=== PATIENT | female | born 1995 | race American Indian/Alaskan Native ===

== ENCOUNTER 2017-02-01 13:08 | Emergency (ER) | payer MEDICAID ==
[2017-02-01 15:17] LABS: Basophils % (Auto) 0.8 % (0.0-1.8); Eosinophils % (Auto) 2.6 % (0.0-4.3); Hematocrit 29.1 % (30.3-42.9); Hemoglobin 9.2 gm/dl (10.1-14.3); Mean Corpuscular HGB Conc 31 % (30-34); Platelet Count 289 K/mm3 (140-440); Red Blood Count 4.52 M/mm3 (3.65-5.03); Red Cell Distribution Width 17.2 % (13.2-15.2); White Blood Count 8.5 K/mm3 (4.5-11.0)
[2017-02-01 15:28] LABS: Mean Corpuscular Hemoglobin 20 pg (28-32); Mean Corpuscular Volume 64 fl (79-97)
[2017-02-01 15:39] LABS: Alanine Aminotransferase 10 units/L (7-56); Albumin 3.8 g/dL (3.9-5); Alkaline Phosphatase 67 units/L (35-129); Anion Gap 20 mmol/L; BUN/Creatinine Ratio 13.33; Blood Urea Nitrogen 8 mg/dL (7-17); Calcium 9.1 mg/dL (8.4-10.2); Carbon Dioxide 21 mmol/L (22-30); Chloride 100.4 mmol/L (98-107); Glucose 91 mg/dL (65-100); Potassium 4.1 mmol/L (3.6-5.0); Sodium 137 mmol/L (137-145); Total Protein 7.8 g/dL (6.3-8.2)
[2017-02-01 15:49] LABS: Bacteria,Urine 1+ /HPF (Negative); Bilirubin,Urine NEG (Negative); Blood,Urine NEG (Negative); Ketones,Urine NEG (Negative); Leukocyte Esterase,Urine SM (Negative); Mucus,Urine FEW /HPF; Nitrite,Urine NEG (Negative); Protein,Urine <15 mg/dL mg/dL (Negative); Urobilinogen,Urine < 2.0 mg/dL (<2.0)
--- NOTE | 2017-02-01 17:52 | Emergency Department Report ---
Entered by BERNICE CRUZ, acting as scribe for JENNIE ALVARES PA. Chief Complaint: Abdominal Pain Stated Complaint: ? WKS PREG/ABD PAIN Time Seen by Provider: 02/01/17 15:37 - HPI History of Present Illness: 21 y/o female patient that is c/o 01/02, sharp right lower abdominal pain for 2 days that radiates to her right upper abdomen. Patient states she doesn't know how far along she is. Denies Hx of similar abdominal pain in the past. Reports normal PO intake. Reports discomfort after urination. Denies nausea and vomiting. Denies vaginal bleeding. Denies fever and chills. Denies dysuria. LMP in September 2016. Patient states she found out that she was in October 2016 at [facility] and denies seeing an OB since finding out in October 2016. - ROS Review of Systems: All systems are negative unless stated in the HPI above. - Exam Vital Signs: Vital Signs 02/01/17 14:54 Temperature 98.2 F Pulse Rate 99 H Respiratory 20 Rate Blood Pressure 119/80 O2 Sat by Pulse 100 Oximetry Physical Exam: GENERAL: Patient is alert and oriented x 3. No apparent distress, normal gait, atraumatic. ABDOMEN: Soft, nondistended. Nontender to palpation on all quadrants. No guarding or rebound. MSE screening note: Focused history and physical exam performed. Due to findings the following was ordered: ED Medical Decision Making - Lab Data Result diagrams: 02/01/17 15:05 02/01/17 15:05 - Medical Decision Making Patient screened by provider in triage area. Lab work and an US OB will be ordered and sent in for patient. Patient sent to be seen a PCP provider if normal ultrasound with referral to [facility] ED Disposition for MSE Condition: Stable Instructions: Abdominal Pain (ED) This documentation as recorded by the scribe,BERNICE CRUZ,accurately reflects the service I personally performed and the decisions made by DIA oglesby OYINLOLA A, PA.
--- NOTE | 2017-02-01 18:19 | Ultrasound Report ---
FINAL REPORT PROCEDURE: US OB \T\gt; = 14 WEEKS FETUS TECHNIQUE: Real-time limited sonographic examination was performed for evaluation of size, position, heartbeat, fluid volume for each fetus with image documentation (1 or more fetuses). CPT 46376 HISTORY: Pelvic pain COMPARISON: No prior studies are available for comparison. FINDINGS: MATERNAL Cervix is not fully evaluated. Transabdominal measurement is 3.3 centimeters, however transvaginal measurement would be more accurate. FETUS IUP: Single living intrauterine . Position: Breech at the time of the scan. Placental position: Anterior and grade 0, without previa . Amniotic fluid volume: Subjectively within normal limits Heart rate and rhythm: 152 BPM, Regular . anatomic survey: Not performed. MEASUREMENTS BPD: 3.4 centimeters, 16 weeks 3 days. HC: 12.8 centimeters, 16 weeks 3 days. AC: 10.0 centimeters, 16 weeks 0 days. FL: 2.0 centimeters, 15 weeks 6 days. Mean Gestational Age (composite criteria): 16 weeks 1 day. Estimated Weight: 142 grams. Estimated Due Date: 07/18/2017. IMPRESSION: 1. Single living intrauterine gestation at approximately 16 weeks 1 day. 2. EDC by US 07/18/2017.
--- NOTE | 2017-02-01 20:59 | Emergency Department Report ---
ED Abdominal Pain HPI - General Chief Complaint: Abdominal Pain Stated Complaint: ? WKS PREG/ABD PAIN Time Seen by Provider: 02/01/17 19:43 Source: patient Mode of arrival: Ambulatory Limitations: No Limitations - History of Present Illness Initial Comments: 21-year-old female past medical history preeclampsia presents with complaint of 2 months of abdominal pain. Patient states that she is currently but has not had any care has had no ultrasounds and has not followed up with LOGISTICS SUPPLY OFFICER. Denies any current vaginal bleeding or vaginal discharge. Patient states she has some occasional vaginal irritation. Patient denies any nausea or vomiting currently is able to tolerate by mouth fluid and food without difficulty and adamantly denies any vaginal bleeding. Patient states that she does feel some movement and has been experiencing lower abdominal discomfort for approximately 2 months intermittently. MD Complaint: abdominal pain Onset/Timin -: month(s) Location: suprapubic Migration to: suprapubic Severity: mild Severity scale (0 -10): 3 Quality: cramping Consistency: intermittent - Related Data Previous Rx's Medication Instructions Recorded Last Taken Type Vit No.130/Iron/FA 1 each PO QDAY #30 tablet 02/01/17 Unknown Rx [ Tablet] metroNIDAZOLE [Flagyl TAB] 500 mg PO Q12HR #14 tab 02/01/17 Unknown Rx Allergies Allergy/AdvReac Type Severity Reaction Status Date / Time No Known Allergies Allergy Unverified 02/01/17 15:01 ED Review of Systems ROS: Stated complaint: ? WKS PREG/ABD PAIN Other details as noted in HPI Constitutional: denies: chills, fever Eyes: denies: eye pain, eye discharge, vision change ENT: denies: ear pain, throat pain Respiratory: denies: cough, shortness of breath, wheezing Cardiovascular: denies: chest pain, palpitations Endocrine: no symptoms reported Gastrointestinal: abdominal pain (2 months of intermittent abdominal pain). denies: nausea, diarrhea Genitourinary: denies: urgency, dysuria, discharge Musculoskeletal: denies: back pain, joint swelling, arthralgia Skin: denies: rash, lesions Neurological: denies: headache, weakness, paresthesias Psychiatric: denies: anxiety, depression Hematological/Lymphatic: denies: easy bleeding, easy bruising ED Past Medical Hx - Past Medical History Hx Hypertension: Yes (when ) - Surgical History Past Surgical History?: No - Social History Smoking Status: Never Smoker Substance Use Type: None - Medications Home Medications: Home Medications Medication Instructions Recorded Confirmed Last Taken Type Vit No.130/Iron/FA 1 each PO QDAY #30 tablet 02/01/17 Unknown Rx [ Tablet] metroNIDAZOLE [Flagyl TAB] 500 mg PO Q12HR #14 tab 02/01/17 Unknown Rx ED Physical Exam - General Limitations: No Limitations General appearance: alert, in no apparent distress - Head Head exam: Present: atraumatic, normocephalic - Eye Eye exam: Present: normal appearance, PERRL, EOMI - ENT ENT exam: Present: mucous membranes moist - Neck Neck exam: Present: normal inspection, full ROM - Respiratory Respiratory exam: Present: normal lung sounds bilaterally. Absent: respiratory distress - Cardiovascular Cardiovascular Exam: Present: regular rate, normal rhythm. Absent: systolic murmur, diastolic murmur, rubs, gallop - GI/Abdominal GI/Abdominal exam: Present: soft (upper abdomen is soft and nontender. Patient states she has some suprapubic discomfort on deep palpation), normal bowel sounds - Rectal Rectal exam: Present: deferred - External exam: Present: normal external exam Speculum exam: Present: vaginal discharge (patient has whitish vaginal discharge on pelvic exam) Bi-manual exam: Present: normal bi-manual exam (no cervical motion tenderness or adnexal tenderness on palpation during pelvic exam bimanual exam) - Extremities Exam Extremities exam: Present: normal inspection, full ROM - Back Exam Back exam: Present: normal inspection - Neurological Exam Neurological exam: Present: alert, oriented X3 - Psychiatric Psychiatric exam: Present: normal affect, normal mood - Skin Skin exam: Present: warm, dry, intact, normal color. Absent: rash ED Course Vital Signs 02/01/17 14:54 Temperature 98.2 F Pulse Rate 99 H Respiratory 20 Rate Blood Pressure 119/80 O2 Sat by Pulse 100 Oximetry ED Medical Decision Making - Lab Data Result diagrams: 02/01/17 15:05 02/01/17 15:05 - Medical Decision Making A/P: 16 weeks, bacterial vaginosis, dysuria 1-patient states she has not gone to an PHARMACY TEACHER for care and is not taking vitamins, I stressed the importance of follow-up with an PHARMACY TEACHER for care and planning. Patient stated that she does not like doctors which is why she has not gone for LOGISTICS SUPPLY OFFICER follow-up. I didn't poured the patient that because she is 16 weeks it is vital for her to have follow-up with an PHARMACY TEACHER, patient's significant other was present for this conversation and patient agreed that she would call for follow-up 2- wet prep shows positive clue cells will treat for bacterial vaginosis as patient did complain of some mild vaginal irritation, will tz with metronidazole. will give pt course of macrobid as she states she has some mild burning sensation with urination 3- will start on vitamins 4- US shows IUP, single live HR 150s. As per Dr. Connolly as pt is less than 20 weeks w/ normal US no indication for heart monitoring at this time. Critical care attestation.: If time is entered above; I have spent that time in minutes in the direct care of this critically ill patient, excluding procedure time. ED Disposition Clinical Impression: Bacterial vaginosis Qualifiers: Weeks of gestation: 16 weeks Qualified Code(s): Z3A.16 - 16 weeks gestation of Disposition: DC- TO HOME OR SELFCARE Is pt being admited?: No Does the pt Need Aspirin: No Condition: Stable Instructions: Abdominal Pain (ED), Bacterial Vaginosis (ED), Abdominal Pain in (ED) Prescriptions: metroNIDAZOLE [Flagyl TAB] 500 mg PO Q12HR #14 tab Vit No.130/Iron/FA [ Tablet] 1 each PO QDAY #30 tablet Referrals: [facility] [Provider Group] - 3-5 Days DESI DICKSON MD [Staff Physician] - 3-5 Days [facility] [Outside] - 3-5 Days [facility] [Provider Group] - 3-5 Days Forms: STI Treatment and Prevention, Accompanied Note, Work/School Release Form (ED) Time of Disposition: 21:28
[2017-02-01 21:50] VITALS: BP 130/87
== END 2017-02-01 21:49 | disposition home or self-care (01) ==
LOC: ED 13:08
DX: O23.591 Infection of other part of genital tract in pregnancy, first trimester (principal); N76.0 Acute vaginitis; Z3A.16 16 weeks gestation of pregnancy
CPT/HCPCS: 36415; 76805; 80053; 81001; 84702; 84703; 85025; 87210; 87591

== ENCOUNTER 2017-02-09 06:45 | Emergency (ER) | payer MEDICAID ==
[2017-02-09 08:05] LABS: Bilirubin,Urine NEG (Negative); Blood,Urine NEG (Negative); Ketones,Urine NEG (Negative); Leukocyte Esterase,Urine MOD (Negative); Mucus,Urine 1+ /HPF; Nitrite,Urine NEG (Negative); Protein,Urine <15 mg/dL mg/dL (Negative); Urobilinogen,Urine < 2.0 mg/dL (<2.0)
[2017-02-09 08:10] LABS: Basophils % (Auto) 0.7 % (0.0-1.8); Eosinophils % (Auto) 2.4 % (0.0-4.3); Hematocrit 28.4 % (30.3-42.9); Mean Corpuscular HGB Conc 32 % (30-34); Platelet Count 290 K/mm3 (140-440); Red Blood Count 4.46 M/mm3 (3.65-5.03); Red Cell Distribution Width 17.5 % (13.2-15.2); White Blood Count 6.8 K/mm3 (4.5-11.0)
[2017-02-09 08:18] LABS: Mean Corpuscular Hemoglobin 20 pg (28-32); Mean Corpuscular Volume 64 fl (79-97)
--- NOTE | 2017-02-09 10:01 | Emergency Department Report ---
Chief Complaint: Abdominal Pain Stated Complaint: ABD PAIN/17WKS Time Seen by Provider: 02/09/17 09:57 - HPI History of Present Illness: PT c/o RUQ pain after eating spaghetti last night - ROS Review of Systems: - n/v/d - fever - vaginal bleeding - Exam Vital Signs: Vital Signs 02/09/17 07:00 Temperature 98.3 F Pulse Rate 106 H Respiratory 18 Rate Blood Pressure 123/73 O2 Sat by Pulse 100 Oximetry Physical Exam: pt looks well, non toxic. steady gait abd soft, gravid, RUQ ttp MSE screening note: Focused history and physical exam performed. Due to findings the following was ordered: labs, us ED Medical Decision Making - Lab Data Result diagrams: 02/09/17 07:14 ED Disposition for MSE Condition: Stable Instructions: Abdominal Pain (ED) Referrals: PRIMARY CARE, [Primary Care Provider] - 3-5 Days
[2017-02-09 10:41] LABS: Alanine Aminotransferase 9 units/L (7-56); Albumin 3.7 g/dL (3.9-5); Albumin/Globulin Ratio 1.2 %; Alkaline Phosphatase 64 units/L (35-129); Anion Gap 21 mmol/L; Blood Urea Nitrogen 6 mg/dL (7-17); Calcium 8.8 mg/dL (8.4-10.2); Carbon Dioxide 19 mmol/L (22-30); Chloride 100.4 mmol/L (98-107); Glucose 105 mg/dL (65-100); Lipase 24 units/L (13-60); Potassium 3.9 mmol/L (3.6-5.0); Sodium 136 mmol/L (137-145); Total Protein 6.9 g/dL (6.3-8.2)
--- NOTE | 2017-02-09 11:46 | Ultrasound Report ---
RIGHT UPPER QUADRANT ULTRASOUND: HISTORY: Right upper quadrant abdominal pain. Technique: Transabdominal ultrasound imaging with Doppler interrogation. FINDINGS: The gallbladder is sonolucent with no evidence of stones, polyps or wall thickening. The common duct is normal in caliber. Images of the liver parenchyma, pancreas, right kidney and aorta are within normal limits. No perihepatic ascites. IMPRESSION: Unremarkable right upper quadrant ultrasound.
--- NOTE | 2017-02-09 11:48 | Ultrasound Report ---
OB ULTRASOUND History: Right abdominal pain during . Technique: Transabdominal ultrasound with Doppler interrogation. Gestation: Single Position: Breech Amniotic Fluid: Within normal limits Placenta: Anterior Placental Grade: 1 No evidence for abruption. Heart Rate: 151 BPM Cervical length: 3.6 cm (Normal > 3 cm) BPD: 3.7 cm = 17 w 2 d HC: 13.9 cm = 17 w 2 d AC: 11.5 cm = 17 w 2 d FL: 2.4 cm = 17 w 2 d HC/AC Ratio: 121 Cephalic Index: 85.7 Estimated Weight: 189 grams. 45 percentile. US Gest. Age = 17 w 2 d EDC: 07/18/17
[2017-02-09 12:00] VITALS: BP 119/70
[2017-02-09] MEDS ORDERED: TYLENOL PO ONE (13:23)
--- NOTE | 2017-02-09 13:29 | Emergency Department Report ---
HPI - General Chief Complaint: Abdominal Pain Time Seen by Provider: 02/09/17 09:57 - HPI HPI: Room 36 The patient is a 21-year-old female presenting with a chief complaint of abdominal pain. The patient states yesterday she developed pain in the right upper quadrant that was sharp and constant in nature. Patient is recommended in approximate 17 weeks gestational age. Patient denies vaginal bleeding nausea /vomiting or anorexia. Patient denies any history of fever or dysuria. Patient states she was seen in the hospital one week ago and diagnosed with UTI but never filled her prescription Location: Right upper quadrant Duration: Constant since yesterday Quality: Pain Severity: 11/02 Modifying factors: [see above] Context: [see above] Mode of transportation: [not driving] ED Past Medical Hx - Past Medical History Previous Medical History?: Yes Hx Hypertension: Yes (when last 2 times) Additional medical history: Preeclampsia with last 2 pregs. - Surgical History Past Surgical History?: Yes Additional Surgical History: x2 - Family History Family history: no significant - Social History Smoking Status: Never Smoker Substance Use Type: None - Medications Home Medications: Home Medications Medication Instructions Recorded Confirmed Last Taken Type Nitrofurantoin Beadle/M-Cryst 100 mg PO Q12HR #14 capsule 02/09/17 Unknown Rx [Macrobid CAP] metroNIDAZOLE [Flagyl] 500 mg PO Q12HR #14 tab 02/09/17 Unknown Rx ED Review of Systems ROS: Stated complaint: ABD PAIN/17WKS Other details as noted in HPI Comment: All other systems reviewed and negative Constitutional: denies: chills, fever Eyes: denies: eye pain, eye discharge, vision change ENT: denies: ear pain, throat pain Respiratory: denies: cough, shortness of breath, wheezing Cardiovascular: denies: chest pain, palpitations Endocrine: no symptoms reported Gastrointestinal: abdominal pain. denies: nausea, vomiting Genitourinary: denies: urgency, dysuria, discharge Musculoskeletal: denies: back pain, joint swelling, arthralgia Skin: denies: rash, lesions Neurological: denies: headache, weakness, paresthesias Psychiatric: denies: anxiety, depression Hematological/Lymphatic: denies: easy bleeding, easy bruising Physical Exam - Physical Exam Vital Signs: Vital Signs 02/09/17 02/09/17 02/09/17 07:00 11:59 12:00 Temperature 98.3 F 98 F Pulse Rate 106 H 84 Respiratory 18 18 18 Rate Blood Pressure 123/73 Blood Pressure 119/70 [Right] O2 Sat by Pulse 100 99 100 Oximetry Physical Exam: GENERAL: The patient is well-developed well-nourished female lying on stretcher not appearing to be in acute distress. [] HEENT: Normocephalic. Atraumatic. Extraocular motions are intact. Patient has moist mucous membranes. NECK: Supple. Trachea midline CHEST/LUNGS: Clear to auscultation. There is no respiratory distress noted. HEART/CARDIOVASCULAR: Regular. There is no tachycardia. There is no gallop rub or murmur. ABDOMEN: Abdomen is soft, gravid with mild discomfort to palpation in the right upper quadrant. There is no rebound or guarding. There is no tenderness to palpation in the right lower quadrant. Patient has normal bowel sounds. There is no abdominal distention. SKIN: There is no rash. There is no edema. There is no diaphoresis. NEURO: The patient is awake, alert, and oriented. The patient is cooperative. The patient has normal speech MUSCULOSKELETAL: There is no evidence of acute injury. ED Course Vital Signs 02/09/17 02/09/17 02/09/17 07:00 11:59 12:00 Temperature 98.3 F 98 F Pulse Rate 106 H 84 Respiratory 18 18 18 Rate Blood Pressure 123/73 Blood Pressure 119/70 [Right] O2 Sat by Pulse 100 99 100 Oximetry ED Medical Decision Making - Lab Data Result diagrams: 02/09/17 07:14 02/09/17 07:14 Laboratory Tests 02/09/17 02/09/17 02/09/17 07:14 07:14 07:14 WBC 6.8 RBC 4.46 Hgb 9.0 L Hct 28.4 L MCV 64 L MCH 20 L MCHC 32 RDW 17.5 H Plt Count 290 Lymph % (Auto) 33.7 Beadle % (Auto) 9.3 H Eos % (Auto) 2.4 Baso % (Auto) 0.7 Lymph # 2.3 Beadle # 0.6 Eos # 0.2 Baso # 0.0 Seg Neutrophils % 53.9 Seg Neutrophils # 3.7 Sodium 136 L Potassium 3.9 Chloride 100.4 Carbon Dioxide 19 L Anion Gap 21 BUN 6 L Creatinine 0.5 L Estimated GFR > 60 BUN/Creatinine Ratio 12.00 Glucose 105 H Calcium 8.8 Total Bilirubin 0.30 AST 12 ALT 9 Alkaline Phosphatase 64 Total Protein 6.9 Albumin 3.7 L Albumin/Globulin Ratio 1.2 Lipase 24 HCG, Quant [id number] H Urine Color Urine Turbidity Urine pH Ur Specific [place] Urine Protein Urine Glucose (UA) Urine Ketones Urine Blood Urine Nitrite Urine Bilirubin Urine Urobilinogen Ur Leukocyte Esterase Urine WBC (Auto) Urine RBC (Auto) U Epithel Cells (Auto) Urine Mucus 02/09/17 07:23 WBC RBC Hgb Hct MCV MCH MCHC RDW Plt Count Lymph % (Auto) Beadle % (Auto) Eos % (Auto) Baso % (Auto) Lymph # Beadle # Eos # Baso # Seg Neutrophils % Seg Neutrophils # Sodium Potassium Chloride Carbon Dioxide Anion Gap BUN Creatinine Estimated GFR BUN/Creatinine Ratio Glucose Calcium Total Bilirubin AST ALT Alkaline Phosphatase Total Protein Albumin Albumin/Globulin Ratio Lipase HCG, Quant Urine Color Yellow Urine Turbidity Clear Urine pH 6.0 Ur Specific [place] 1.023 Urine Protein <15 mg/dl Urine Glucose (UA) Neg Urine Ketones Neg Urine Blood Neg Urine Nitrite Neg Urine Bilirubin Neg Urine Urobilinogen < 2.0 Ur Leukocyte Esterase Mod Urine WBC (Auto) 8.0 H Urine RBC (Auto) 4.0 U Epithel Cells (Auto) 4.0 Urine Mucus 1+ - Radiology Data Radiology results: report reviewed (pelvic ultrasound), image reviewed (pelvic ultrasound) Pelvic ultrasound (read by radiologist)- heart rate 151 bpm. Amniotic fluid within normal limits. Anterior disintegrated 1. No evidence for abruption. Abdominal ultrasound (read by radiologist)-unremarkable right upper quadrant ultrasound - Medical Decision Making Is the patient states she did not get her prescriptions from her previous visit filled I will also write for Flagyl in addition to nitrofurantoin. Patient's wet prep one week ago revealed greater than 20% clue cells - Differential Diagnosis UTI, threatened , biliary colic, peptic ulcer disease Critical care attestation.: If time is entered above; I have spent that time in minutes in the direct care of this critically ill patient, excluding procedure time. ED Disposition Clinical Impression: , Abdominal pain, UTI (urinary tract infection) Disposition: TO HOME OR SELFCARE Is pt being admited?: No Does the pt Need Aspirin: No Condition: Stable Instructions: Abdominal Pain (ED), Bacterial Vaginosis (ED) Additional Instructions: Return to the emergency department immediately should you develop worsening symptoms, fever, inability to tolerate food or liquid or any other concerns. Prescriptions: metroNIDAZOLE [Flagyl] 500 mg PO Q12HR #14 tab Nitrofurantoin Beadle/M-Cryst [Macrobid CAP] 100 mg PO Q12HR #14 capsule Referrals: SHELLY LOW MD [Staff Physician] - [facility] (Dr. Low is an PROGRAM COORD[employer]ATOR [employer]. Please follow up with her for further evaluation) Time of Disposition: 13:37
== END 2017-02-09 13:52 | disposition home or self-care (01) ==
LOC: ED 06:45
DX: O23.42 Unspecified infection of urinary tract in pregnancy, second trimester (principal); Z3A.17 17 weeks gestation of pregnancy
CPT/HCPCS: 36415; 76705; 76805; 80053; 81001; 83690; 84702; 85025; 99284